=== PATIENT | female | born 1990 | race Caucasian/White ===

== ENCOUNTER 2021-06-11 22:41 | Emergency (ER) | payer BC ==
[2021-06-12 13:02] LABS: SARS-CoV-2 PCR by NAA Not Detected (NotDetected)
== END 2021-06-12 00:01 | disposition home or self-care (01) ==
LOC: ERS 22:41
DX: U07.1 COVID-19 (principal); Z79.899 Other long term (current) drug therapy; I10 Essential (primary) hypertension
CPT/HCPCS: 99283; U0003; U0005

== ENCOUNTER 2021-08-20 15:43 | Emergency (ER) | payer BC, OTHER ==
[2021-08-20 16:21] LABS: #Eosinphils 0.1 thou/uL (0.0-0.7); #Lymphocytes 2.3 thou/uL (1.20-3.40); #Monocytes 0.5 thou/uL (0.11-0.59); #Neutrophils 5.2 thou/uL (1.40-6.50); %Basophils 0.1 % (0.0-1.0); %Eosinophils 1.3 % (0.0-10.0); %Lymphocytes 28.5 % (21.0-51.0); %Monocytes 6.5 % (0.0-10.0); %Neutrophils 63.5 % (42.0-75.0); Hemoglobin 15.3 g/dL (12.0-16.0); Mean Corpuscular HGB CONC 33.4 g/dL (32.0-36.0); Mean Corpuscular Hemoglobin 31.6 pg (27.0-31.0); Mean Corpuscular Volume 94.6 fL (78.0-98.0); Mean Platelet Volume 6.7 fL (7.4-10.4); Platelet Count 218 thou/uL (130-400); RBC Distribution Width 11.8 % (11.5-14.5); Red Blood Cell (RBC) Count 4.83 mill/uL (4.20-5.40); White Blood Cell (WBC) Count 8.2 thou/uL (4.8-10.8)
[2021-08-20 16:36] LABS: Bilirubin Negative (Negative); Blood, Urine Negative (Negative); Clarity Clear (Clear); Glucose, Urine (Dipstick) Normal (Negative); Ketone, Urine Negative (Negative); Leukocyte Negative Leu/uL (Negative); Nitrite Negative (Negative); Protein, Urine (Dipstick) Negative (Neg-Trace); Specific Gravity, Urine 1.025 (1.002-1.036); Urobilinogen Normal mg/dL (Less than 2)
[2021-08-20 16:40] LABS: Pregnancy Test - Urine (BHCG) Negative (Negative); Pregu Control Background? CLEAR/WHITE (CLR/WHITE); Pregu Control Bar Appear? YES (CONTROL BAR); Specific Gravity 1.025 (1.002-1.036)
[2021-08-20 16:48] LABS: ALT (SGPT) 19 U/L (8-55); AST (SGOT) 22 U/L (5-34); Albumin 4.4 g/dL (3.5-5.0); Alkaline Phosphatase 84 U/L (40-110); Anion Gap 12 mmol/L (10-20); BUN (Urea Nitrogen) 14 mg/dL (7.0-18.7); Bilirubin, Total 0.4 mg/dL (0.2-1.2); Calc. Creatinine Clearance 0 mL/min (70-130); Calcium 9.7 mg/dL (7.8-10.44); Carbon Dioxide 27 mmol/L (22-29); Chloride 104 mmol/L (98-107); Globulin 3.4 g/dL (2.4-3.5); Glucose 77 mg/dL (70-105); Lipase 25 U/L (8-78); Potassium 4.2 mmol/L (3.5-5.1); Protein, Total 7.8 g/dL (6.0-8.3); Sodium 139 mmol/L (136-145)
[2021-08-20] MEDS ORDERED: diphenhydrAMINE 50 MG/ML VIAL ONE (16:49)
[2021-08-20] MEDS ORDERED: Famotidine/PF 20 mg/2ml Vial ONE (16:51)
[2021-08-20] MEDS ORDERED: methylPREDNISolone Sod Succ 40 MG VIAL ONE (16:51)
== END 2021-08-20 18:55 | disposition home or self-care (01) ==
LOC: ERS 15:43
DX: S20.211A Contusion of right front wall of thorax, initial encounter (principal); V49.9XXA Car occupant (driver) (passenger) injured in unspecified traffic accident, initial encounter
CPT/HCPCS: 36415; 71260; 74177; 80053; 81003; 81025; 83690; 85025; 96374; 96375; J1200; J2920; S0028

== ENCOUNTER 2022-12-02 14:36 | Emergency (ER) | payer BC, OTHER ==
[2022-12-02] MEDS ORDERED: Ondansetron ODT 4 MG TAB ONE (15:06)
[2022-12-02 16:01] LABS: #Eosinphils 0.2 thou/uL (0.0-0.7); #Lymphocytes 1.6 thou/uL (1.20-3.40); #Monocytes 0.8 thou/uL (0.11-0.59); #Neutrophils 8.7 thou/uL (1.40-6.50); %Basophils 0.1 % (0.0-1.0); %Eosinophils 1.6 % (0.0-10.0); %Lymphocytes 14.5 % (21.0-51.0); %Monocytes 6.7 % (0.0-10.0); %Neutrophils 77.1 % (42.0-75.0); Hemoglobin 11.6 g/dL (12.0-16.0); Mean Corpuscular HGB CONC 33.8 g/dL (32.0-36.0); Mean Corpuscular Hemoglobin 31.5 pg (27.0-31.0); Mean Corpuscular Volume 93.2 fl (78.0-98.0); Mean Platelet Volume 7.2 fL (7.4-10.4); Platelet Count 189 10x3/uL (130-400); RBC Distribution Width 12.8 % (11.5-14.5); Red Blood Cell (RBC) Count 3.67 mill/uL (4.20-5.40); White Blood Cell (WBC) Count 11.2 10x3/uL (4.8-10.8)
[2022-12-02 16:23] LABS: ALT (SGPT) 8 U/L (8-55); AST (SGOT) 12 U/L (5-34); Albumin 3.4 g/dL (3.5-5.0); Alkaline Phosphatase 75 U/L (40-110); Anion Gap 12 mmol/L (10-20); BUN (Urea Nitrogen) 7 mg/dL (7.0-18.7); Bilirubin, Total 0.3 mg/dL (0.2-1.2); Calc. Creatinine Clearance 0 mL/min (70-130); Carbon Dioxide 23 mmol/L (22-29); Chloride 106 mmol/L (98-107); Estimated GFR 119; Globulin 3.1 g/dL (2.4-3.5); Glucose 74 mg/dL (70-105); Protein, Total 6.5 g/dL (6.0-8.3); Sodium 137 mmol/L (136-145)
== END 2022-12-02 18:57 | disposition short-term general hospital (02) ==
LOC: ERS 14:36
DX: O99.613 Diseases of the digestive system complicating pregnancy, third trimester (principal); D72.829 Elevated white blood cell count, unspecified; I10 Essential (primary) hypertension; V43.52XA Car driver injured in collision with other type car in traffic accident, initial encounter; Z3A.28 28 weeks gestation of pregnancy
CPT/HCPCS: 76815; 80053; 85025; 99284; Q0162

== ENCOUNTER 2023-06-15 10:30 | Emergency (ER) | payer OTHER, SELFPAY ==
[2023-06-15 12:14] LABS: SARS-CoV-2 NAA Rapid Test DETECTED (NotDetected)
== END 2023-06-15 16:11 | disposition home or self-care (01) ==
LOC: ERS 10:30
DX: U07.1 COVID-19 (principal); Z20.822 Contact with and (suspected) exposure to COVID-19
CPT/HCPCS: 87081; 87430; 99283

== ENCOUNTER 2023-07-21 07:05 | Emergency (ER) | payer SELFPAY ==
[2023-07-21] MEDS ORDERED: Famotidine 20 MG TAB ONE (08:35)
[2023-07-21] MEDS ORDERED: Ondansetron ODT 4 MG TAB ONE (08:35)
[2023-07-21] MEDS ORDERED: Dicyclomine 20 MG/2 ML VIAL ONE (08:36)
== END 2023-07-21 09:32 | disposition home or self-care (01) ==
LOC: ERS 07:05
DX: R19.7 Diarrhea, unspecified (principal); T78.1XXA Other adverse food reactions, not elsewhere classified, initial encounter; I10 Essential (primary) hypertension
CPT/HCPCS: 96372; 99283; Q0162